=== PATIENT | male | born 1995 ===

== ENCOUNTER 2021-01-04 23:30 | Emergency (ER) | payer BC ==
[~2021-01-04] VITALS: Ht 170.2 cm; Wt 88.5 kg
[2021-01-05 00:26] LABS: Basophils # (auto) 0 10 ^3/uL (0-0.2); Basophils % (auto) 0.3 % (0.0-2.0); Eosinophils # (auto) 0 10 ^3/uL (0-0.8); Hematocrit 49.7 % (41.0-53.0); Hemoglobin 16.8 g/dL (13.5-17.5); Lymphocytes # (auto) 1.4 10 ^3/uL (0.4-5.4); Lymphocytes % (auto) 11.3 % (10.0-50.0); Mean Corpuscular Hemoglobin 30.4 pg (28.0-32.0); Mean Corpuscular Hgb Conc. 33.9 g/dL (32.0-36.0); Mean Corpuscular Volume 89.5 fL (80.0-100.0); Monocytes # (auto) 0.7 10 ^3/uL (0-1.3); Monocytes % (auto) 6.2 % (0.0-12.0); Neutrophils # (auto) 9.9 10 ^3/uL (1.6-8.6); Neutrophils % (auto) 82.2 % (37.0-80.0); Red Blood Cells 5.55 10^6/uL (4.5-5.90); Red Cell Distribution Width 13.4 % (11.8-14.3)
[2021-01-05 00:44] LABS: Alanine Aminotransferase 32 U/L (16-61); Albumin 4.2 g/dL (3.4-5.0); Anion Gap 10 (5-15); Aspartate Aminotransferase 19 U/L (15-37); BUN/Creatinine Ratio 11.1; Blood Urea Nitrogen 11 mg/dL (7-18); Calcium 8.6 mg/dL (8.5-10.1); Carbon Dioxide 23 mmol/L (21-32); Chloride 110 mmol/L (98-107); GFR African American 117 mL/min; GFR Non-African American 96 mL/min; Glucose 119 mg/dL (74-106); Potassium 4.1 mmol/L (3.5-5.1); Sodium 143 mmol/L (136-145)
[2021-01-05 00:49] LABS: Alkaline Phosphatase 82 U/L (45-117); Bilirubin, Total 0.4 mg/dL (0.2-1.0); Total Protein 7.6 g/dL (6.4-8.2)
[2021-01-05] MEDS ORDERED: cefTRIAXone W LIDOCAINE 1 GM IM IM ONE (03:45)
[2021-01-05] MEDS ORDERED: cefTRIAXone SOD 1,000 MG VL IM ONE (05:15)
[2021-01-05 06:30] VITALS: BP 128/96
== END 2021-01-05 07:10 | disposition home or self-care (01) ==
LOC: ER 23:30
DX: R45.851 Suicidal ideations (principal); F12.10 Cannabis abuse, uncomplicated; F41.9 Anxiety disorder, unspecified; R07.89 Other chest pain
CPT/HCPCS: 36415; 71045; 80053; 80329; 84484; 85025; 93005; 96372; 99285; J0696